=== PATIENT | female | born 1960 | race Caucasian/White ===

== ENCOUNTER 2016-10-22 16:07 | Outpatient (CLI) ==
[2015-09-17 09:05] VITALS: BMI 31.7
== END 2016-10-22 16:08 | disposition home or self-care (01) ==
LOC: CAR 16:07
PROVIDERS: ATTEND Internal Medicine Pulmonary Disease
DX: G47.33 Obstructive sleep apnea (adult) (pediatric) (principal)
CPT/HCPCS: 95811

== ENCOUNTER 2017-05-30 09:48 | Outpatient (CLI) ==
[2015-09-17 09:05] VITALS: BMI 31.7
--- NOTE | 2017-05-31 09:23 | MAMMO ---
EXAM: Digital screening mammogram HISTORY: Screening COMPARISON: 05/06/2015 FINDINGS: Digital MLO and CC views of the right and left breast were performed. There are scatter ed fibroglandular densities. There is no evidence for mass, asymmetry, distortion, or suspicious ca lcifications in either breast. IMPRESSION: 1. No evidence of malignancy in the right or left breast. 2. Annual screening mammogram is recommended in one year. BIRADS category 1, negative examination
== END 2017-05-30 09:49 | disposition home or self-care (01) ==
LOC: RAD 09:48
PROVIDERS: ATTEND Internal Medicine
DX: Z12.31 Encounter for screening mammogram for malignant neoplasm of breast (principal)
CPT/HCPCS: 77067

== ENCOUNTER 2017-06-12 08:35 | Outpatient (CLI) ==
[2015-09-17 09:05] VITALS: BMI 31.7
[2017-06-12 09:30] LABS: ALBUMIN 3.9 g/dL (3.4-5.0); ALBUMIN/GLOBULIN RATIO 1.05; ANION GAP 13.8; BILIRUBIN,TOTAL 0.41 mg/dL (0.00-1.20); BUN/CREATININE RATIO 21.51; CALCIUM 9.7 mg/dL (8.2-10.2); CREATININE 0.79 mg/dL (0.60-1.30); POTASSIUM 3.8 mmol/L (3.5-5.10); TOTAL PROTEIN 7.6 g/dL (6.4-8.2)
== END 2017-06-12 08:36 | disposition home or self-care (01) ==
LOC: LAB 08:35
PROVIDERS: ATTEND Internal Medicine Endocrinology, Diabetes & Metabolism
DX: E11.65 Type 2 diabetes mellitus with hyperglycemia (principal)
CPT/HCPCS: 36415; 80053; 83036

== ENCOUNTER 2017-07-05 08:23 | Outpatient (CLI) ==
[2015-09-17 09:05] VITALS: BMI 31.7
[2017-07-05 08:59] LABS: CREATININE 0.76 mg/dL (0.60-1.30)
--- NOTE | 2017-07-05 09:41 | CT ---
EXAM: CT ABDOMEN AND PELVIS HISTORY: Abdominal pain TECHNIQUE: CT abdomen and pelvis with intravenous contrast. Images were reconstructed using 5 mm sec tion thickness. Reformations were prepared. FINDINGS: Comparison may be made to 05/09/2016. There is a stable 1 cm low attenuation lesion in the medial right hepatic lobe probably representing a cyst. There may be mild fatty infiltration of the liver. Spleen within normal limits. Gallbladde r, pancreas and adrenal glands appear normal. Several small cystic masses of the kidneys appear art sly stable probably representing cysts, many of these are too small to characterize. There is mild a therosclerotic disease. Stomach within normal limits. What appears to represent the appendix has no evidence of inflammation . Normal bowel gas pattern. No uterus is seen. Urinary bladder is normal. There is no ascites or obvious inflammatory infiltration of the abdominal fat. Abdominal wall is intact without herniation. The bones reveal moderate degenerative changes of the l umbosacral junction. Lung bases are free of acute infiltrate. No pneumoperitoneum. IMPRESSION: 1. No obvious acute intra-abdominal or pelvic abnormality. Appendix appears normal. No evidence of a ctive enterocolitis or excessive fecal retention. 2. Subtle fatty infiltration of the liver. 3. Probable liver and renal cysts.
== END 2017-07-05 08:24 | disposition home or self-care (01) ==
LOC: RAD 08:23
PROVIDERS: ATTEND Internal Medicine
DX: R10.30 Lower abdominal pain, unspecified (principal)
CPT/HCPCS: 36415; 82565